=== PATIENT | female | born 2005 | race Caucasian/White ===

== ENCOUNTER → 2023-05-11 | Outpatient (CLI) | payer OTHER ==
[2023-05-11 17:09] LABS: Basophils # (A) 0.07 X 10*3/uL (0.00-0.10); Basophils % (A) 0.9 %; Eosinophils # (A) 0.18 X 10*3/uL (0.04-0.35); Eosinophils % (A) 2.3 %; HCT 41.4 % (37.2-46.3); HGB 14.4 d/dL (12.0-15.0); Lymphocytes # (A) 2.11 X 10*3/uL (0.90-5.00); Lymphocytes % (A) 27.1 %; MCH 31.4 pg (27.0-32.0); MCHC 34.8 d/dL (32.0-37.0); MCV 90.2 FL (80.0-97.0); Mean Platelet Volume 9.8 FL (9.5-12.2); Monocytes # (A) 0.51 X 10*3/uL (0.20-1.00); Monocytes % (A) 6.5 %; NRBC Per 100 WBC 0 X 10*3/uL (0.00-0.01); Neutrophils # (A) 4.91 X 10*3/uL (1.80-7.70); Neutrophils % (A) 62.9 %; Platelet Count 391 X 10*3/uL (140-440); RBC 4.59 X 10*6/uL (4.10-5.20); RDW 12.8 % (11.5-14.5)
[2023-05-11 17:17] LABS: Chol/HDL Ratio 3.04 Ratio; LDL Cholesterol,Calculated 85.3 mg/dL (0.0-131.0); VLDL Calculation 16.66 mg/dL (5.00-40.00)
[2023-05-11 17:43] LABS: Hepatitis B Surface AB- Quant 3.5 mIU/mL; Hepatitis B Surface Antigen Nonreactive; Hepatitis C IgG Antibody Nonreactive
[2023-05-11 19:30] LABS: ALT 25 U/L (8-44); AST 28 U/L (13-35); Albumin 5.2 d/dL (3.8-4.9); Albumin/Globulin Ratio 2.17 Ratio (1.60-3.17); Alkaline Phosphatase 85 U/L (41-126); BUN/Creat Ratio 18.67 Ratio (12.00-20.00); Bilirubin, Conjugated <0.20 mg/dL (0.20-0.40); Bilirubin,Unconjugated >0.40 mg/dL (0.20-1.00); Blood Urea Nitrogen 11.2 mg/dL (9.0-27.0); Calcium 10.2 mg/dL (8.7-10.3); Carbon Dioxide 22.4 mmol/L (21.6-31.8); Chloride 105 mmol/L (96-109); Globulin 2.4 d/dL (1.6-3.3); Glucose 79 mg/dL (70-110); Potassium 4.5 mmol/L (3.5-5.5); Sodium 139 mmol/L (135-145); Total Bilirubin 0.6 mg/dL (0.3-1.2); Total Protein 7.6 d/dL (6.2-8.2)
== END | disposition home or self-care (01) ==
LOC: LABWHC1 11:27
PROVIDERS: ATTEND Dermatology
DX: L20.89 Other atopic dermatitis (principal)
CPT/HCPCS: 36415; 80048; 80061; 80076; 85025; 86480; 86704; 86706; 86803; 87340

== ENCOUNTER 2024-05-20 13:19 | Emergency (ER) | payer OTHER ==
[2024-05-20] MEDS ORDERED: ACETAMINOPHEN TAB 500 MG TAB ONE (14:08)
[2024-05-20] MEDS ORDERED: CYCLOBENZAPRINE 10 MG TAB ONE (14:09)
[2024-05-20] MEDS ORDERED: KETOROLAC 15 MG/ML 1 ML VIAL ONE (14:09)
[2024-05-20] MEDS ORDERED: LIDOCAINE 4% PATCH TOPICAL ONE (14:22)
[2024-05-20] MEDS ORDERED: CYCLOBENZAPRINE 10MG STARTER 3 TAB BTL ONE (15:01)
== END 2024-05-20 15:00 | disposition home or self-care (01) ==
LOC: EC 13:19 → EDSTATUS 16:24
DX: M54.50 Low back pain, unspecified
CPT/HCPCS: 96372; 99282

== ENCOUNTER → 2024-07-30 | Outpatient (CLI) | payer OTHER ==
--- NOTE | 2024-07-30 09:32 | XR ---
EXAMINATION TYPE: XR hand complete RT DATE OF EXAM: 07/30/2024 COMPARISON: NONE HISTORY: 18-year-old female M79.641, right hand pain TECHNIQUE: 3 views FINDINGS: No acute fracture, subluxation, dislocation. No periostitis or osteolysis. No soft tissue c alcifications. IMPRESSION: No acute osseous abnormality seen. [facility] Jacquelin Garcia, , 07/30/2024 9:29 AM
== END | disposition home or self-care (01) ==
LOC: RADXRMAIN 07:44
PROVIDERS: ATTEND Family Medicine